=== PATIENT | male | born 1970 | race Two or more races ===

== ENCOUNTER 2018-01-13 12:33 | Emergency (ER) | payer BC ==
[2018-01-13 12:44] VITALS: BP 162/99; PULSE 86; TEMP 98.5; BMI 32.3
[2018-01-13] MEDS ORDERED: diphenhydrAMINE HCL 25 MG CAPSULE (FP) PO ONE ×2 (12:57→12:59)
[2018-01-13] MEDS ORDERED: predniSONE 20 MG TABLET (UD) PO ONE (12:57)
[2018-01-13] MEDS ORDERED: predniSONE 20 MG TABLET (UD) ONE (12:59)
--- NOTE | 2018-01-13 13:09 | PDOC ---
History of Present Illness - General Chief Complaint: Poison [place],Poison Kellen Exposure Stated Complaint: POISON KELLEN Time Seen by Provider: 01/13/18 12:51 History Source: Patient Exam Limitations: No Limitations - History of Present Illness Initial Comments: 01/13/18 13:13 47-year-old male presents to the emergency room with complaints of itching facial swelling and redness worsening since Wednesday after having contact with poison kellen. Patient has been using [id number] calamine lotion along with Zanfel. Patient denies difficulty swallowing, visual disturbances, fever or chills. Timing/Duration: reports: other Severity: Yes: moderate Location: reports: extremities, face Respiratory Risk Factors: reports: other Associated Symptoms: denies: denies symptoms Past History - Travel Traveled outside of the country in the last 30 days: No - Past Medical History Allergies/Adverse Reactions: Allergies Allergy/AdvReac Type Severity Reaction Status Date / Time No Known Allergies Allergy Verified 01/13/18 12:38 Home Medications: Ambulatory Orders Diphenhydramine HCl 25 mg PO TID PRN #15 capsule 01/13/18 predniSONE [Deltasone -] 40 mg PO DAILY #8 tablet 01/13/18 COPD: No Other medical history: Pt denies - Suicide/Smoking/Psychosocial Hx Smoking History: Never smoked Have you smoked in the past 12 months: No Information on smoking cessation initiated: No Hx Alcohol Use: No Drug/Substance Use Hx: No Substance Use Type: None Patient Lives Alone: No Lives with/in: spouse/SO Review of Systems - Review of Systems Able to Perform ROS?: No Constitutional: No: Symptoms Reported HEENTM: No: Symptoms Reported Integumentary: Yes: Pruritus, Rash Hematologic/Lymphatic: No: Symptoms Reported *Physical Exam - Vital Signs Last Vital Signs Temp Pulse Resp BP Pulse Ox 98.5 F 86 18 162/99 100 01/13/18 12:39 01/13/18 12:39 01/13/18 12:39 01/13/18 12:39 01/13/18 12:39 - Physical Exam General Appearance: Yes: Nourished, Appropriately Dressed. No: Apparent Distress HEENT: positive: Pharynx Normal Respiratory/Chest: positive: Lungs Clear, Normal Breath Sounds. negative: Respiratory Distress, Accessory Muscle Use Cardiovascular: positive: Regular Rhythm, Regular Rate. negative: Murmur Integumentary: positive: Rash (noted a cluster of erythematous vesicles to right face, arms, and chest. Noted mild eyelid edema bilaterally) Neurologic: positive: Motor Strength 5/5 (ambulatory) Medical Decision Making - Medical Decision Making 01/13/18 13:29 Patient confocal poison kellen while cutting down a tree on Wednesday. Patient now with worsening symptoms redness and itching. Patient with moderate allergic reaction prompting further management. Facial order for prednisone and Benadryl here in the ER will discharge home with the same. *DC/Admit/Observation/Transfer Diagnosis at time of Disposition: Allergic dermatitis due to poison kellen - Discharge Dispostion Disposition: HOME Condition at time of disposition: Good - Prescriptions Prescriptions: Diphenhydramine HCl 25 mg PO TID PRN #15 capsule PRN Reason: For Itching predniSONE [Deltasone -] 40 mg PO DAILY #8 tablet - Referrals - Patient Instructions Printed Discharge Instructions: DI for Poison Kellen Allergy Additional Instructions: Please start steroids tomorrow since you were first dose here in the ER. You may take Benadryl 25 mg every 8 hours to control the itching and inflammation. Please change towel with each showering or cleansing. Continue to use Zanfel and topical Benadryl to help dry your skin out. If symptoms do not improve over the next 2 days please return to the ED. - Post Discharge Activity
== END 2018-01-13 13:23 | disposition home or self-care (01) ==
LOC: JERFT 12:33
DX: L23.7 Allergic contact dermatitis due to plants, except food (principal)
CPT/HCPCS: 99281-25